=== PATIENT | female | born 1965 | race Caucasian/White ===

== ENCOUNTER 2025-04-29 14:33 | Emergency (ER) | payer OTHER ==
[2025-04-29] MEDS ORDERED: fentaNYL 100 MCG/2 ML SDV IV ONE (14:56)
[2025-04-29] MEDS ORDERED: Ondansetron 4 MG/2 ML SDV ONE (14:56)
[2025-04-29] MEDS ORDERED: fentaNYL 100 MCG/2 ML SDV ONE (14:56)
[2025-04-29 15:07] LABS: BASOPHILS PERCENT AUTO 0.3 % (0.0-1.0); EOSINOPHILS PERCENT AUTO 2.7 % (1.0-3.0); LYMPHOCYTES PERCENT AUTO 33.5 % (20.5-50.1); MONOCYTES PERCENT AUTO 5.8 % (2-8); NEUTROPHILS PERCENT AUTO 57.7 % (42.2-75.2); PLATELET COUNT,PLT 282 10^3/uL (150-450); RED BLOOD CELL COUNT 4.86 10^6/uL (4.2-5.4); WHITE BLOOD CELL COUNT,WBC 7.8 10^3/uL (5.0-10.0)
[2025-04-29 15:17] LABS: A/G RATIO 0.88; ALANINE AMINOTRANSFERASE,ALT 19 U/L (14-59); ASPARTATE AMNIOTRANSFERASE,AST 17 U/L (15-37); BILIRUBIN TOTAL 0.3 mg/dL (0.2-1.0); BLOOD UREA NITROGEN,BUN 11 mg/dL (7-18); CARBON DIOXIDE,CO2 29 mmol/L (21-32); CHLORIDE,CL 108 mmol/L (98-107); CREATININE 1.08 mg/dL (0.55-1.02); ESTIMATED GFR 59 mL/min (>=60); GLUCOSE RANDOM 111 mg/dL (70-99); POTASSIUM,K 3.8 mmol/L (3.5-5.1); PROTEIN TOTAL,TP 6.4 g/dL (6.4-8.2); SODIUM,NA 143 mmol/L (136-145)
[2025-04-29] MEDS: Iopamidol 755 Mg/ML 100 ML Bottle IVPUSH ONE (15:41)
== END 2025-04-29 18:45 | disposition home or self-care (01) ==
LOC: DL.ED 14:33
DX: S00.83XA Contusion of other part of head, initial encounter (principal); R07.89 Other chest pain; V87.7XXA Person injured in collision between other specified motor vehicles (traffic), initial encounter
CPT/HCPCS: 36415; 70450; 71045; 71260; 72125; 72170; 74177; 80053; 83735; 85025; 96361; 96374; 96375; 96376; 99283; 99284; Q9967

== ENCOUNTER 2025-09-30 09:19 | Emergency (ER) | payer OTHER ==
[2025-09-30] MEDS: Lidocaine 2% Viscous Solution 15 ML UD PO ONE (10:11)
[2025-09-30 10:15] LABS: BASOPHILS PERCENT AUTO 0.5 % (0.0-1.0); EOSINOPHILS PERCENT AUTO 0.5 % (1.0-3.0); LYMPHOCYTES PERCENT AUTO 17.9 % (20.5-50.1); MONOCYTES PERCENT AUTO 12.7 % (2-8); NEUTROPHILS PERCENT AUTO 68.4 % (42.2-75.2); PLATELET COUNT,PLT 227 10^3/uL (150-450); RED BLOOD CELL COUNT 5.24 10^6/uL (4.2-5.4); WHITE BLOOD CELL COUNT,WBC 6.1 10^3/uL (5.0-10.0)
[2025-09-30 10:31] LABS: A/G RATIO 0.9; ALANINE AMINOTRANSFERASE,ALT 17.0 U/L (14-59); ASPARTATE AMNIOTRANSFERASE,AST 17.0 U/L (15-37); BILIRUBIN TOTAL 0.5 mg/dL (0.2-1.0); BLOOD UREA NITROGEN,BUN 26.0 mg/dL (7-18); CARBON DIOXIDE,CO2 27.0 mmol/L (21-32); CHLORIDE,CL 99.0 mmol/L (98-107); CREATININE 1.51 mg/dL (0.55-1.02); EST CRCL DRUG DOSING (CG) 34.21 mL/min; GLUCOSE RANDOM 66.0 mg/dL (70-99); POTASSIUM,K 3.8 mmol/L (3.5-5.1); PROTEIN TOTAL,TP 7.6 g/dL (6.4-8.2); SODIUM,NA 139.0 mmol/L (136-145)
[2025-09-30 10:33] LABS: ESTIMATED GFR 39.0 mL/min (>=60)
[2025-09-30] MEDS: Fluorescein 1 MG Ophth Strip EYERT ONE (11:33)
[2025-09-30] MEDS: Fluorescein 1 MG Ophth Strip ONE (11:33)
[2025-09-30] MEDS: Ketorolac 30 MG/ML SDV IVPUSH ONE (11:58)
[2025-09-30] MEDS: Erythromycin Base 0.5% Ophth Oint 3.5 GM Tube EYERT ONE (12:47)
== END 2025-09-30 12:50 | disposition home or self-care (01) ==
LOC: DL.ED 09:19
DX: B02.30 Zoster ocular disease, unspecified (principal)
CPT/HCPCS: 36415; 80053; 85025; 86140; 87070; 87252; 96374; 99284; A9270; J1885; J3490